=== PATIENT | male | born 1990 | race Caucasian/White ===

== ENCOUNTER 2021-05-31 12:11 | Emergency (ER) | payer OTHER, SELFPAY ==
--- NOTE | ~2021-05-31 | XR_ITS ---
EXAMINATION: XR chest 1V portable INDICATION: Cough TECHNIQUE: Portable AP chest at 1250 hours COMPARISON: None available FINDINGS: There are patchy opacities of the lung bases. No pleural effusion or pneumothorax is identi fied. The cardiomediastinal silhouette is normal. IMPRESSION: 1. Patchy bibasilar opacities, likely pneumonia. Reviewed, dictated and finalized at location [facility]. [employer]
[2021-05-31 12:16] VITALS: BP 128/80; PULSE 78; RESP 18; TEMP 36.3; O2SAT 96
[2021-05-31 12:36] VITALS: BP 121/81; PULSE 81; RESP 18; O2SAT 97
--- NOTE | 2021-05-31 13:18 | ED.GENADULT ---
HPI - General Adult General Chief complaint: Upper Respiratory Infection Stated complaint: cough Time Seen by Provider: 05/31/21 12:35 Source: RN notes reviewed History of Present Illness HPI narrative: Patient presents emergency department from home for cough. Patient states that cough began approximately 1 week ago. States is productive of clear sputum. Associated with rhinorrhea and subjective fevers but no measured fever he denies any sore throat chest pain shortness of breath abdominal pain nausea vomiting or any other symptoms. States he has not had his Covid vaccination Related Data Allergies Allergy/AdvReac Type Severity Reaction Status Date / Time No Known Allergies Allergy Unverified 06/22/14 19:32 Review of Systems Review of Systems: Gen.: For subjective fevers Eyes: Denies eye pain or visual change ENT: Reports rhinorrhea Respiratory: Denies shortness of breath ports cough CV: Denies chest pain or palpitations GI: Denies abdominal pain nausea, emesis or diarrhea Musculoskeletal: Denies back pain or muscle pain Neuro: Denies numbness, tingling, weakness or focal weakness Skin: Denies rash Except as documented, all other systems reviewed and negative [facility] Past Medical History Medical History (Updated 05/31/21 @ 13:31 by Oscar Gore DO) Patient denies significant medical history Social History Social History (Updated 05/31/21 @ 13:18 by Oscar Gore DO) Smoking status: Never smoker Exam Narrative: APPEARANCE: No acute distress, nontoxic, resting in bed EYES: EOMI HEENT: Normocephalic, atraumatic, OMM RESPIRATORY: No respiratory distress Clear to auscultation bilaterally with no rhonchi wheezing or rales. CARDIOVASCULAR: Regular rate and rhythm without murmurs rubs or gallops. ABDOMINAL: Soft, nontender, nondistended, no rebound or guarding MUSCULOSKELETAl: Moves all extremities. No clubbing, cyanosis or edema. NEURO: Awake and alert. Following commands, speech normal, no focal deficits SKIN:: Warm, dry. No rashes lesions or abrasions PSYCHIATRIC: Normal affect/mood, Course Course Emergency Course: Discussed with patient results of workup and diagnosis. Discussed need for follow-up with primary care, proper use of medication, and reasons to return to the emergency department. Patient understands and agrees to current treatment plan discussed with patient Covid testing and need for self-isolation Vital Signs Vital signs: Vital Signs Temperature 97.3 F L 05/31/21 12:16 Pulse Rate 78 05/31/21 12:16 Respiratory Rate 18 05/31/21 12:16 Blood Pressure 128/80 05/31/21 12:16 Pulse Oximetry 96 05/31/21 12:16 Temperature 97.3 F L 05/31/21 12:16 Pulse Rate 81 05/31/21 12:36 Respiratory Rate 18 05/31/21 12:36 Blood Pressure 121/81 05/31/21 12:36 Pulse Oximetry 97 05/31/21 12:36 Medical Decision Making MDM Narrative Medical decision making narrative: Patient with cough for a week chest x-ray shows bibasilar infiltrates and concern of COVID-19 patient has not been vaccinated vital signs are stable in the emergency department at this time I will start patient on antibiotics to cover for possible pneumonia and Covid swab will be obtained with discharge and follow-up as an outpatient Vital Signs Vital Signs: Vital Signs Temperature 97.3 F L 05/31/21 12:16 Pulse Rate 78 05/31/21 12:16 Respiratory Rate 18 05/31/21 12:16 Blood Pressure 128/80 05/31/21 12:16 Pulse Oximetry 96 05/31/21 12:16 Temperature 97.3 F L 05/31/21 12:16 Pulse Rate 81 05/31/21 12:36 Respiratory Rate 18 05/31/21 12:36 Blood Pressure 121/81 05/31/21 12:36 Pulse Oximetry 97 05/31/21 12:36 Imaging Data Radiologist's impression: ITS Impressions Chest X-Ray 05/31/21 13:16 IMPRESSION: 1. Patchy bibasilar opacities, likely pneumonia. Discharge Plan Discharge Clinical Impression: Pneumonia, Suspected 2019-nCoV infection [place]
[2021-05-31] MEDS: AZITHROMYCIN 250 MG TABLET 500 MG PO (13:38)
[2021-05-31 13:49] VITALS: BP 119/81; PULSE 84; RESP 23; O2SAT 96
[2021-06-01 17:10] LABS: SARS-CoV-2 RNA PCR Positive
== END 2021-05-31 13:50 | disposition home or self-care (01) ==
PROVIDERS: Emergency Provider Emergency Medicine
DX: U07.1 COVID-19 (principal); J12.82 Pneumonia due to coronavirus disease 2019
CPT/HCPCS: 71045; 99283; A9270; C9803; U0003; U0005

== ENCOUNTER 2023-07-07 14:45 | Emergency (ER) | payer OTHER, SELFPAY ==
[2023-07-07 16:19] VITALS: BP 127/74; PULSE 91; RESP 16; TEMP 37.8; O2SAT 98
--- NOTE | 2023-07-07 16:50 | ED.URI ---
HPI - URI/Sore Throat General Chief Complaint: Upper Respiratory Infection Stated Complaint: Sore Throat/Cough History of Present Illness HPI Narrative: 33-year-old male presented for complaint of sore throat and cough since yesterday. Also endorses decreased appetite. He denies shortness of breath, wheezing, difficulty maintaining secretions, vomiting or lethargy. Taking allergy medication for symptoms. Denies known sick contacts. Related Data Allergies Allergy/AdvReac Type Severity Reaction Status Date / Time No Known Allergies Allergy Unverified 06/22/14 19:32 Review of Systems Review of Systems: CONSTITUTIONAL: Denies body aches, fever, chills, or sweats. EYES: Denies visual changes, redness, or discharge. ENT: Reports sore throat Denies rhinorrhea, congestion, or otalgia. CARDIOVASCULAR: Denies chest pain, palpitations, or edema. RESPIRATORY: reports cough Denies dyspnea. GASTROINTESTINAL: Denies abdominal pain, nausea, vomiting, or diarrhea. SKIN: Denies rash, itching, or wounds. MUSCULOSKELETAL: Denies back pain, joint pain, or myalgia. NEUROLOGIC: Denies headache PMFSH Past Medical History Medical History Patient denies significant medical history Social History Social History Smoking status: Never smoker Exam Narrative: GENERAL: well-appearing, no acute distress. EYES: conjunctivae clear ENT: Mucous membranes moist. TMs pearly blair with normal light reflex bilaterally; right canal slightly erythematous no swelling, no tragal tenderness. Oropharynx erythematous Tonsils enlarged 2+ with exudate, Right tonsil slightly larger than left. No drooling, no hoarseness, no trismus, uvula midline. No tripod positioning, hot potato voice, or soft palate swelling. NECK: Supple. No lymphadenopathy CHEST: Clear to auscultation, breath sounds equal. No respiratory distress, speaks in full sentences. HEART: Regular rate and rhythm. No murmur heard. SKIN: Warm, dry, no rash. NEURO: Alert and oriented x3. Course Course Emergency Course: Patient is aware of diagnosis, understands and agrees to treatment plan. Anticipatory guidance given. Patient agrees to follow-up as directed and is aware of reasons to seek care at the emergency department. Portions of this record may have been created with voice recognition software Level of Care: Express Care Visit Vital Signs Vital signs: Vital Signs Temperature 100.1 F H 07/07/23 16:19 Pulse Rate 91 07/07/23 16:19 Respiratory Rate 16 07/07/23 16:19 Blood Pressure 127/74 07/07/23 16:19 Pulse Oximetry 98 07/07/23 16:19 Oxygen Delivery Room Air 07/07/23 16:19 Temperature 100.1 F H 07/07/23 16:19 Pulse Rate 91 07/07/23 16:19 Respiratory Rate 16 07/07/23 16:19 Blood Pressure 127/74 07/07/23 16:19 Pulse Oximetry 98 07/07/23 16:19 Oxygen Delivery Room Air 07/07/23 16:19 MDM - URI/Sore Throat MDM Narrative Medical decision making narrative: strep Testing is deferred, will treat based on PE and CC. Discussed slightly enlarged right tonsil compared to left, and pt will report to ER if no improvment. Advise supportive treatments. Patient is appropriate for outpatient treatment and follow-up. Differential Diagnosis Differential diagnosis: Likely upper respiratory infection, sinusitis, viral infection, influenza and pharyngitis Discharge Plan Discharge Clinical Impression: Pharyngitis Qualifiers: Pharyngitis/tonsillitis etiology: unspecified etiology Qualified Code(s): J02.9 - Acute pharyngitis, unspecified Patient Disposition: Home, Self-Care Condition: Stable Instructions: Antibiotic Form, Peritonsillar Abscess (ED), Strep Throat (ED) Additional Instructions: - Take the antibiotic as directed. Fever and sore throat typically resolve within one to three days. Most patients can return t
== END 2023-07-07 17:00 | disposition home or self-care (01) ==
PROVIDERS: Emergency Provider Nurse Practitioner Family
DX: J02.9 Acute pharyngitis, unspecified (principal)
CPT/HCPCS: 99213; G0463

== ENCOUNTER 2025-06-18 15:59 | Emergency (ER) | payer OTHER, SELFPAY ==
[2025-06-18 16:17] VITALS: BP 118/81; PULSE 70; RESP 16; TEMP 36.4; O2SAT 99
--- NOTE | 2025-06-18 16:31 | ED.URI ---
HPI - URI/Sore Throat General Chief Complaint: Upper Respiratory Infection Stated Complaint: cough, runny nose patient presents to the [facility] with complaints of nasal congestion, runny nose, sore throat, headache, fatigue, chills low-grade fever, and cough that began about 3-4 days ago. Patient reports using some [id number] cough cold medication and noted this relieved the sore throat. No known sick contacts. Denies dizziness, shortness of breath, wheezing, difficulty swallowing, nausea, vomiting, diarrhea. Related Data Allergies Allergy/AdvReac Type Severity Reaction Status Date / Time No Known Allergies Allergy Verified 06/18/25 16:19 Review of Systems Constitutional: Constitutional: Reports as per HPI, Reports chills, Reports fatigue, Denies fever(s) and Denies weakness Eyes: Eyes: Reports no additional eye complaints ENT: Reports as per HPI, Denies vertigo, Denies dizziness, Reports nasal congestion and Reports sore throat Cardiovascular: Cardiovascular: Reports no additional cardiovascular complaints Respiratory: Respiratory: Reports as per HPI, Reports chest congestion, Reports cough, Denies dyspnea and Denies wheezing Gastrointestinal: Gastrointestinal: Reports as per HPI, Denies abdominal pain, Denies diarrhea, Denies nausea and Denies vomiting Genitourinary: Genitourinary: Reports no additional male genitourinary complaints Musculoskeletal: Musculoskeletal: Reports as per HPI, Denies back pain and Denies myalgias Integumentary/Breasts: Skin/Breast: Reports as per HPI, Denies erythema, Denies rash and Denies skin ulcer Neurologic: Reports as per HPI, Denies vertigo, Denies dizziness, Reports headache(s) and Denies weakness Psychiatric: Psychiatric: Reports no additional psychiatric complaints Endocrine: Endocrine: Reports no additional endocrine complaints Hematologic/Lymphatic: Hematologic/Lymphatic: Reports no additional hematologic/lymphatic complaints Allergic/Immunologic: Allergic/Immunologic: Reports no additional allergic/immunologic complaints PMFSH Past Medical History Medical History Patient denies significant medical history Social History Social History Smoking status: Never smoker Exam Const: General: healthy appearing and no acute distress Nutritional Appearance: well nourished Orientation/consciousness: patient oriented x3 Limitations: no limitations HENMT: Head: normal to inspection Ears: external ears normal and TM's normal bilaterally Face/Nose/Sinus: Normal external nose present, Normal nares present and no nasal discharge noted Face and sinus: normal facial exam and sinuses nontender Mouth: Yes Normal oral and palatal mucosa present, Yes lip normal and Yes moist mucous membranes Throat: posterior oropharynx normal Neck: Neck: normal visual inspection and no lymphadenopathy Resp: Effort & Inspection: normal respiratory effort Auscultation: clear to auscultation bilaterally Cardio: Rate: regular rate Rhythm: regular rhythm Skin: General skin exam: normal color Rashes: no rashes Wounds: no wounds Neuro: General: patient oriented x3 Speech: normal speech Gait exam (Neuro): Normal gait present Psych: Mental Status: mental status grossly normal Affect: normal affect Attitude: cooperative Course Course Level of Care: Express Care Visit Vital Signs Vital signs: Vital Signs Temperature 97.6 F 06/18/25 16:17 Pulse Rate 70 06/18/25 16:17 Respiratory Rate 16 06/18/25 16:17 Blood Pressure 118/81 06/18/25 16:17 Pulse Oximetry 99 06/18/25 16:17 Temperature 97.6 F 06/18/25 16:17 Pulse Rate 70 06/18/25 16:17 Respiratory Rate 16 06/18/25 16:17 Blood Pressure 118/81 06/18/25 16:17 Pulse Oximetry 99 06/18/25 16:17 [facility] MDM Narrative Medical decision making narrative: Flu and COVID testing completed in Express Care The [facility] History is obtained from patient who is an independent historian and physical exam was performed. Available medical records were reviewed at this time. Exam findings show no acute concerns or changes; patient is non-toxic appearing and is in no distress. Patient is appropriate for outpatient treatment and follow-up. I have evaluated and discussed social determinants of health with the patient that could potentially impact subsequent diagnosis and treatment plans. Differential diagnosis and treatment plan were discussed with the patient. Patient agrees with discussion and after shared medical decision making agrees with plan of care. All questions were answered to the patient's satisfaction. Differential Diagnosis Differential Diagnosis: upper respiratory infection, sinusitis, pharyngitis, strep, COVID Medical Records I have reviewed the following patient records and this information was taken into consideration when formulating the assessment and plan.: previous labs, previous ER visits, previous hospitalizations and previous clinic visits Lab Data MDM Lab Attestation statement: I personally reviewed the patient's lab results. Discharge Plan Discharge Clinical Impression: Upper respiratory infection Patient Disposition: Home Condition: Stable Instructions: Antibiotic Form, Upper Respiratory Infection (ED), Cold Symptoms (ED) Additional Instructions: Viral illness may last between 7-12days; antibiotic is NOT recommended at this time. Recommend antihistamine such as Benadryl at night time and Claritin/Zyrtec/Shira during the day. Also using steroid nasal spray like Flonase can help with symptoms and congestion. Using sudafed for significant congestion will also give some relief. Cough syrup may cause drowsiness; avoid driving or take it at night time. Use inhaler as needed for cough, wheezing, shortness of breath or chest tightness. Also, recommend symptomatic treatment includes: rest, fluids, increase humidity of the air at home. Recommend Acetaminophen or nonsteroidal anti-inflammatory agents(NSAIDs) as directed in the bottle to reduce fever and/pain/headache. Avoid smoking/second-hand smoke. Limit visits to areas with large crowds. Frequent hand washing or hand cleaning manager is one of the best ways to prevent spread of infection. Please schedule a followup visit with your personal physician for further evaluation and treatment within 3-5days. Including recheck and discussion of your blood pressure. If your symptoms persist, change or worsen significantly before you can contact your personal physician then please, without delay, go to the emergency department for further evaluation. Patient Language: Chilean Prescriptions: No Action ibuprofen 800 mg tablet 800 mg PO TID PRN (Reason: pain) Qty: 20 0RF Follow-up/Referrals: PHYSICIAN,[employer] DESIGNER [Primary Care Provider, Internal Medicine] Time of Disposition: 16:44
[2025-06-18 16:51] LABS: EDCOVIDSCREEN Negative (Negative); EDINFLUASCREEN Negative (Negative); EDINFLUBSCREEN Negative (Negative)
== END 2025-06-18 16:50 | disposition home or self-care (01) ==
PROVIDERS: Emergency Provider Nurse Practitioner Family
DX: J06.9 Acute upper respiratory infection, unspecified (principal); Z20.822 Contact with and (suspected) exposure to COVID-19
CPT/HCPCS: 87426; 87804; 99212; G0463